=== PATIENT | female | born 1940 | race Caucasian/White ===

== ENCOUNTER → 2017-01-29 | Outpatient (CLI) | payer MEDICARE, OTHER ==
[~2017-01-29] MED LIST: ADULT LOW DOSE81 MG PO; CEFTIN250 MG PO; DURAGESIC 75 MCG1 EA TP; ELIQUIS5 MG PO; GLIPIZIDE-METF1 EAC2 PO; LANTUS100 UNIT/1 SQ; LORTAB 7.5-3251 EACH PO; LOSARTAN-HCTZ1 EACH PO; NEURONTIN 300300 MG PO; SYNTHROID75 MCG PO; TOPROL XL25 MG PO; ZOFRAN ODT 4 MG4 MG PO
== END ==
LOC: CT 08:39
DX: C50.412 Malignant neoplasm of upper-outer quadrant of left female breast (principal); C79.51 Secondary malignant neoplasm of bone; G89.3 Neoplasm related pain (acute) (chronic); Z17.0 Estrogen receptor positive status [ER+]
CPT/HCPCS: 71260; J7050; Q9965

== ENCOUNTER → 2021-01-30 | Outpatient (CLI) | payer MEDICARE, OTHER ==
[~2021-01-30] MED LIST changes: -DURAGESIC 75 MCG1 EA TP; +DURAGESIC1 EACH TD; +HYZAAR 100-251 EACH PO; +LOPRESSOR 25 MG25 MG PO; +MACROBID 100 M100 M1 PO; +OMNICEF 300 MG300 MG PO; +PYRIDIUM200 MG PO; -SYNTHROID75 MCG PO; +SYNTHROID88 MCG PO; -TOPROL XL25 MG PO; +TRESIBA100 UNIT/1 SQ; +VENTOLIN HFA 66.7 GM INH; +VITAMIN D21250 MCG PO; +XGEVA 120120 MG/1.7 SC
== END ==
LOC: CT 14:57
DX: C50.412 Malignant neoplasm of upper-outer quadrant of left female breast (principal); C79.51 Secondary malignant neoplasm of bone; G89.3 Neoplasm related pain (acute) (chronic); Z17.0 Estrogen receptor positive status [ER+]
CPT/HCPCS: 71260; Q9967

== ENCOUNTER → 2021-02-14 | Outpatient (CLI) | payer MEDICARE, OTHER | LOC: NM 08:10 | DX: C50.412 Malignant neoplasm of upper-outer quadrant of left female breast (principal); C79.51 Secondary malignant neoplasm of bone; G89.3 Neoplasm related pain (acute) (chronic); Z17.0 Estrogen receptor positive status [ER+] | CPT/HCPCS: 78306; A9503 ==

== ENCOUNTER 2021-05-03 10:48 | Emergency (ER) | payer MEDICARE, OTHER ==
[2021-05-03 12:46] LABS: RED BLOOD COUNT 3.44 M/UL (4.00-5.10); WHITE BLOOD COUNT 8.3 K/UL (4.5-11.0)
== END 2021-05-03 14:46 | disposition home or self-care (01) ==
LOC: ER1 10:48
PROVIDERS: Physician Assistant
DX: R53.1 Weakness (principal); R06.02 Shortness of breath; R51.9 Headache, unspecified; E11.9 Type 2 diabetes mellitus without complications; I10 Essential (primary) hypertension; Z90.710 Acquired absence of both cervix and uterus; Z79.01 Long term (current) use of anticoagulants; Z79.899 Other long term (current) drug therapy; Z90.89 Acquired absence of other organs
CPT/HCPCS: 71045; 80053; 81001; 83880; 85025; 99285

== ENCOUNTER → 2021-05-17 | Outpatient (CLI) | payer MEDICARE, OTHER ==
[2021-05-17 13:36] LABS: HEMOGLOBIN 10.7 gm/dl (12.3-15.3); RED BLOOD COUNT 3.43 M/UL (4.00-5.10); WHITE BLOOD COUNT 9.7 K/UL (4.5-11.0)
== END ==
LOC: CT 04-26 13:00
PROVIDERS: Internal Medicine Hematology & Oncology
DX: C50.412 Malignant neoplasm of upper-outer quadrant of left female breast (principal); C79.51 Secondary malignant neoplasm of bone; G89.3 Neoplasm related pain (acute) (chronic); Z17.0 Estrogen receptor positive status [ER+]
CPT/HCPCS: 36415; 80053; 85027; Q9967